=== PATIENT | female | born 1965 ===

== ENCOUNTER 2017-11-02 22:13 | Observation (INO) | payer BC ==
[2017-11-02 22:22] VITALS: TEMP 98.1
[2017-11-02] MEDS ORDERED: Nitroglycerin 2% Ointment Foilpak UD TOP STA (22:45)
[2017-11-02] MEDS ORDERED: Nitroglycerin 2% Ointment Foilpak UD TOP ONE (22:52)
[2017-11-02 23:06] LABS: BASO # 0.1 K/uL (0.0-0.2); BASO % 1.1 % (0.0-2.0); EOS # 0.4 K/uL (0.0-0.7); EOS % 5.5 % (0.0-4.0); HEMOGLOBIN 13.7 g/dL (12.0-16.0); LYMPH # 2.3 K/uL (1.0-4.3); LYMPH % 28.4 % (20.0-40.0); MEAN CELL VOLUME 89.9 fl (81.0-99.0); MEAN CORPUSCULAR HEMOGLOBIN 29.6 pg (27.0-31.0); MEAN CORPUSCULAR HGB CONC 32.9 g/dL (33.0-37.0); MEAN PLATELET VOLUME 7.6 fl (7.2-11.7); MONO # 0.5 K/uL (0.0-0.8); MONO % 6.7 % (0.0-10.0); NEUT # 4.7 K/uL (1.8-7.0); NEUT % 58.3 % (50.0-75.0); NRBC % 0.2 % (0.0-0.0); RBC 4.63 Mil/uL (3.80-5.20); RED CELL DISTRIBUTION WIDTH 12.7 % (11.5-14.5)
[2017-11-02 23:24] LABS: PARTIAL THROMBOPLASTIN TIME 30.7 Seconds (25.6-37.1); PROTHROMBIN TIME 10.8 Seconds (9.8-13.1)
[2017-11-02 23:25] LABS: ALB/GLOB RATIO 1.4 (1.0-2.1); ALBUMIN 4.2 g/dL (3.5-5.0); ALT/SGPT 32 U/L (9-52); AST/SGOT 18 U/L (14-36); BLOOD UREA NITROGEN 11 mg/dl (7-17); CALCIUM 8.9 mg/dL (8.4-10.2); GFR AFRICAN-AMERICAN > 60; GFR NON-AFRICAN AMERICAN > 60; MAGNESIUM 2.1 MG/DL (1.6-2.3)
--- NOTE | 2017-11-02 23:27 | ED PDOC ---
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 Patient states she was feeling a migraine headache come on, took sumatriptan and suddenly felt chest pain, which she says is similar to when she had elevated blood pressure but hasn't been on blood pressure medication for 6 months. Patient also had acute stress today - her car broke down earlier this evening. She denies shortness of breath. PMD: Dr. Espinoza Past Medical History Reviewed: Historical Data, Nursing Documentation, Vital Signs Vital Signs: Last Vital Signs Temp 98.1 F 11/02/17 22:16 Pulse 81 11/02/17 22:39 Resp 18 11/02/17 22:39 BP 169/108 H 11/02/17 22:39 Pulse Ox 100 11/02/17 23:36 - Medical History PMH: HTN, Hyperlipidemia, Migraine - Surgical History Other surgeries: uterine biopsy - Family History Family History: States: Hypertension Other Family History: high cholesterol - Social History Current smoker - smoking cessation education provided: No Alcohol: None Drugs: Denies - Allergies Allergies/Adverse Reactions: Allergies Allergy/AdvReac Type Severity Reaction Status Date / Time No Known Allergies Allergy Verified 11/02/17 22:16 Review of Systems ROS Statement: Except As Marked, All Systems Reviewed And Found Negative Cardiovascular: Positive for: Chest Pain. Negative for: Edema (legs) Respiratory: Negative for: Cough, Shortness of Breath Neurological: Positive for: Headache (resolved) Physical Exam - Reviewed Nursing Documentation Reviewed: Yes Vital Signs Reviewed: Yes - Physical Exam Appears: Positive for: Non-toxic, In Acute Distress Head Exam: Positive for: ATRAUMATIC, NORMOCEPHALIC Skin: Positive for: Warm, Dry Eye Exam: Positive for: EOMI, PERRL ENT: Positive for: Normal ENT Inspection, Pharynx Is (clear) Neck: Positive for: Painless ROM, Supple Cardiovascular/Chest: Positive for: Regular Rate, Rhythm, Chest Non Tender. Negative for: Murmur Respiratory: Positive for: Normal Breath Sounds. Negative for: Rales, Rhonchi, Wheezing, Respiratory Distress Gastrointestinal/Abdominal: Positive for: Soft. Negative for: Tenderness Back: Positive for: Normal Inspection. Negative for: Decreased ROM Extremity: Positive for: Normal ROM. Negative for: Deformity Lymphatic: Negative for: Adenopathy Neurologic/Psych: Positive for: Alert, Mood/Affect (mildly anxious affect). Negative for: Motor/Sensory Deficits - Laboratory Results Result Diagrams: 11/02/17 23:03 11/02/17 23:03 - ECG ECG: Positive for: Interpreted By Me ECG Rhythm: Positive for: Normal QRS, Normal ST Segment, Sinus Rhythm, 1st Degree Heart Block O2 Sat by Pulse Oximetry: 100 (RA) Pulse Ox Interpretation: Normal - Radiology X-Ray: Interpreted by Me X-Ray Interpretation: No Acute Disease Medical Decision Making Medical Decision Making: Time: 22:44 Initial Impression: Chest Pain Initial Plan: --EKG --CMP --Magnesium --Phosphorous --TSH --Troponin Stat --Troponin Q8H x 2 --Urine --Urine Dip --CBC --PTT --Prothrombin Time --Chest XR --Aspirin --Nitro-Bid --Pending ER workup pt needs to be hospitalized because of chest pain to rule out acute cardiac syndrome given risk factors Scribe Attestation: Documented by Noé Hoffman, acting as a scribe for Dr. Dione Gramajo MD Provider Scribe Attestation: All medical record entries made by the Scribe were at my direction and personally dictated by me. I have reviewed the chart and agree that the record accurately reflects my personal performance of the history, physical exam, medical decision making, and the department course for this patient. I have also personally directed, reviewed, and agree with the discharge instructions and disposition. Disposition - Clinical Impression Clinical Impression: Uncontrolled hypertension Discussed With : Paulina Metz Doctor Will See Patient In The: ED Counseled Patient/Family Regarding: Studies Performed, Diagnosis - Disposition Disposition Time: 23:00 Condition: FAIR Forms: [facility] ([place]) - Pt Status Changed To: Hospital Disposition Of: Observation - POA Present On Arrival: None
--- NOTE | 2017-11-03 00:12 | CP.PCM.HP ---
History of Present Illness - History of Present Illness History of Present Illness: CC: CP HPI: This is a 51 y/o female with HTN, HLD, and migraine [place] who was admitted with c/o CP. She states she had a migraine and took sumitriptan and suddenly felt CP, about an hour before she came to ED. She said it is similar to pain she feels when her BP is elevated; she notes that she is not on BP medications. She denies SOB, radiation, palpitations. Denies any other recent episodes of CP. Denies f/c/n/v/d. States she had some acute stress today because her car broke down earlier. PCP: Urszula MHx: HTN, HLD, migraine SHx: Uterine biopsy Allergies: NKDA Medications: As per med rec Social Hx: Lives with family, no tobacco, no EtOH Family Hx: HTN and HLD run in family Present on Admission - Present on Admission Any Indicators Present on Admission: No Past Patient History - Past Social History Alcohol: None Drugs: Denies - CARDIAC Hx Hypertension: Yes - NEUROLOGICAL Hx Migraine: Yes - PSYCHIATRIC Hx Substance Use: No - SURGICAL HISTORY Other/Comment: Uterine bx 08/2017 Meds Allergies/Adverse Reactions: Allergies Allergy/AdvReac Type Severity Reaction Status Date / Time No Known Allergies Allergy Verified 11/02/17 22:16 Physical Exam - Constitutional Appears: No Acute Distress - Head Exam Head Exam: ATRAUMATIC, NORMOCEPHALIC - Eye Exam Eye Exam: EOMI, PERRL - ENT Exam ENT Exam: Mucous Membranes Moist - Neck Exam Neck exam: Positive for: Full Rom - Respiratory Exam Respiratory Exam: Clear to Auscultation Bilateral, NORMAL BREATHING PATTERN - Cardiovascular Exam Cardiovascular Exam: REGULAR RHYTHM, +S1, +S2 - GI/Abdominal Exam GI & Abdominal Exam: Normal Bowel Sounds, Soft - Extremities Exam Extremities exam: Positive for: full ROM, normal inspection - Neurological Exam Neurological exam: Alert, CN II-XII Intact, Oriented x3 - Psychiatric Exam Psychiatric exam: Normal Affect, Normal Mood - Skin Skin Exam: Dry, Warm Results - Vital Signs Recent Vital Signs: Last Vital Signs Temp 98.1 F 11/02/17 22:16 Pulse 81 11/02/17 22:39 Resp 18 11/02/17 22:39 BP 169/108 H 11/02/17 22:39 Pulse Ox 100 11/03/17 00:06 - Labs Result Diagrams: 11/02/17 23:03 11/02/17 23:03 Labs: Laboratory Results - last 24 hr 11/02/17 11/02/17 11/02/17 23:03 23:03 23:03 WBC 8.0 RBC 4.63 Hgb 13.7 Hct 41.6 MCV 89.9 MCH 29.6 MCHC 32.9 L RDW 12.7 Plt Count 190 MPV 7.6 Neut % (Auto) 58.3 Lymph % (Auto) 28.4 [place] % (Auto) 6.7 Eos % (Auto) 5.5 H Baso % (Auto) 1.1 Neut # (Auto) 4.7 Lymph # (Auto) 2.3 [place] # (Auto) 0.5 Eos # (Auto) 0.4 Baso # (Auto) 0.1 PT 10.8 INR 1.0 APTT 30.7 Sodium 141 Potassium 3.7 Chloride 108 H Carbon Dioxide 22 Anion Gap 15 BUN 11 Creatinine 0.8 Est GFR ( Amer) > 60 Est GFR (Non-Af Amer) > 60 Random Glucose 97 Calcium 8.9 Phosphorus 2.4 L Magnesium 2.1 Total Bilirubin 0.4 AST 18 ALT 32 Alkaline Phosphatase 71 Troponin I < 0.0120 Total Protein 7.3 Albumin 4.2 Globulin 3.1 Albumin/Globulin Ratio 1.4 TSH 3rd Generation 5.50 H - EKG Data EKG Interpreted by: Myself EKG shows normal: Sinus rhythm Rate: Normal - EKG Data EKG comments: no acute changes - Imaging and Cardiology Chest x-ray Status: Image reviewed by me (No acute cardiac or pulm disease noted at this time) Assessment & Plan (1) Chest pain Assessment and Plan: 51 y/o female with CP, uncontrolled HTN, HLD and abnormal TSH. 1) CP/HTN/HLD -tele obs -serial trops -consider echo in AM -lipid panel in AM -ASA 325, SLNG PRN -Will start metoprolol given patient with known HTN and not taking any medications -Consider started lisinopril prior to d/c as well 2) TSH -- mildly elevated -Repeat in AM with free t4 3) DVT PPx -- SQ Lovenox Status: Acute (2) HLD (hyperlipidemia) Status: Acute (3) TSH elevation Status: Acute (4) DVT prophylaxis Status: Acute
[2017-11-03 06:00] VITALS: O2SAT 98
[2017-11-03 07:52] LABS: BLOOD UREA NITROGEN 9 mg/dl (7-17); CALCIUM 9.5 mg/dL (8.4-10.2); GFR AFRICAN-AMERICAN > 60; GFR NON-AFRICAN AMERICAN > 60; HDL CHOLESTEROL 57 MG/DL (30-70)
[2017-11-03 07:58] LABS: HEMOGLOBIN 13.2 g/dL (12.0-16.0); MEAN CORPUSCULAR HEMOGLOBIN 30.2 pg (27.0-31.0); MEAN CORPUSCULAR HGB CONC 34.3 g/dL (33.0-37.0); RBC 4.37 Mil/uL (3.80-5.20); WHITE BLOOD COUNT 7.7 K/uL (4.8-10.8)
[2017-11-03 08:05] LABS: LDL CHOLESTEROL 180 mg/dL (0-129)
[2017-11-03 08:09] LABS: T4 7.38 ug/dl (5.5-11.0)
[2017-11-03] MEDS ORDERED: Enoxaparin 40 mg Syringe SC SCH (09:00)
[2017-11-03 10:01] VITALS: BP 116/78; PULSE 75; RESP 24
--- NOTE | 2017-11-03 10:13 | RAD ---
HISTORY: chest pain COMPARISON: No prior. FINDINGS: LUNGS: Minor bibasilar atelectasis PLEURA: No significant pleural effusion identified, no pneumothorax apparent. CARDIOVASCULAR: Normal. OSSEOUS STRUCTURES: No significant abnormalities. VISUALIZED UPPER ABDOMEN: Normal. OTHER FINDINGS: None. IMPRESSION: Minor bibasilar atelectasis.
--- NOTE | 2017-11-03 11:16 | CARD ---
APPROVED REPORT EKG Measurement Heart [id number] <Conclusion> Sinus rhythm with 1st degree AV block Otherwise normal ECG
--- NOTE | 2017-11-03 11:17 | CARD ---
APPROVED REPORT EKG Measurement Heart [id number] <Conclusion> Normal sinus rhythm Nonspecific ST abnormality Abnormal ECG
--- NOTE | 2017-11-03 13:45 | CP.PCM.DIS ---
<Jacob Rodriguez - Last Filed: 11/03/17 16:19> Provider - Provider Date of Admission: 11/02/17 23:58 Attending physician: Paulina Metz MD Primary care physician: Dr Seaman. Time Spent in preparation of Discharge (in minutes): 30 Diagnosis - Discharge Diagnosis (1) Chest pain Status: Acute Comment: Resolved. Pt will go for further evalaution with service center appraiser Dr. Aj Christensen. (2) Hyperlipidemia, acquired Status: Chronic Comment: Will continue Lipitor and ASA. Pt will be evaluated by service center appraiser Dr Aj Christensen. Pt instructed to folow a low-fat healthy diet. Hospital Course - Lab Results Lab Results: Most Recent Lab Values WBC 7.7 K/uL (4.8-10.8) 11/03/17 06:00 RBC 4.37 Mil/uL (3.80-5.20) 11/03/17 06:00 Hgb 13.2 g/dL (12.0-16.0) 11/03/17 06:00 Hct 38.5 % (34.0-47.0) 11/03/17 06:00 MCV 88.0 fl (81.0-99.0) 11/03/17 06:00 MCH 30.2 pg (27.0-31.0) 11/03/17 06:00 MCHC 34.3 g/dL (33.0-37.0) 11/03/17 06:00 RDW 13.0 % (11.5-14.5) 11/03/17 06:00 Plt Count 222 K/uL (130-400) 11/03/17 06:00 MPV 7.6 fl (7.2-11.7) 11/02/17 23:03 Neut % (Auto) 58.3 % (50.0-75.0) 11/02/17 23:03 Lymph % (Auto) 28.4 % (20.0-40.0) 11/02/17 23:03 [place] % (Auto) 6.7 % (0.0-10.0) 11/02/17 23:03 Eos % (Auto) 5.5 % (0.0-4.0) H 11/02/17 23:03 Baso % (Auto) 1.1 % (0.0-2.0) 11/02/17 23:03 Neut # (Auto) 4.7 K/uL (1.8-7.0) 11/02/17 23:03 Lymph # (Auto) 2.3 K/uL (1.0-4.3) 11/02/17 23:03 [place] # (Auto) 0.5 K/uL (0.0-0.8) 11/02/17 23:03 Eos # (Auto) 0.4 K/uL (0.0-0.7) 11/02/17 23:03 Baso # (Auto) 0.1 K/uL (0.0-0.2) 11/02/17 23:03 PT 10.8 Seconds (9.8-13.1) 11/02/17 23: INR 1.0 (0.9-1.2) 11/02/17 23:03 APTT 30.7 Seconds (25.6-37.1) 11/02/17 23:03 Sodium 140 mmol/l (132-148) 11/03/17 06:00 Potassium 3.6 MMOL/L (3.6-5.0) 11/03/17 06:00 Chloride 107 mmol/L (98-107) 11/03/17 06:00 Carbon Dioxide 24 mmol/L (22-30) 11/03/17 06:00 Anion Gap 13 (10-20) 11/03/17 06:00 BUN 9 mg/dl (7-17) 11/03/17 06:00 Creatinine 0.8 mg/dl (0.7-1.2) 11/03/17 06:00 Est GFR ( Amer) > 60 11/03/17 06:00 Est GFR (Non-Af Amer) > 60 11/03/17 06:00 Random Glucose 124 mg/dL (65-105) H 11/03/17 06:00 Calcium 9.5 mg/dL (8.4-10.2) 11/03/17 06:00 Phosphorus 2.4 mg/dl (2.5-4.5) L 11/02/17 23:03 Magnesium 2.1 MG/DL (1.6-2.3) 11/02/17 23:03 Total Bilirubin 0.4 mg/dl (0.2-1.3) 11/02/17 23:03 AST 18 U/L (14-36) 11/02/17 23:03 ALT 32 U/L (9-52) 11/02/17 23:03 Alkaline Phosphatase 71 U/L (38-126) 11/02/17 23:03 Troponin I < 0.0120 ng/mL (0.00-0.120) 11/03/17 06:00 Total Protein 7.3 G/DL (6.3-8.2) 11/02/17 23: Albumin 4.2 g/dL (3.5-5.0) 11/02/17 23: Globulin 3.1 gm/dL (2.2-3.9) 11/02/17 23: Albumin/Globulin Ratio 1.4 (1.0-2.1) 11/02/17 23:03 Triglycerides 229 mg/DL (0-149) H 11/03/17 06:00 Cholesterol 276 mg/dL (0-199) H 11/03/17 06:00 LDL Cholesterol Direct 180 mg/dL (0-129) H 11/03/17 06:00 HDL Cholesterol 57 MG/DL (30-70) 11/03/17 06:00 Thyroxine (T4) 7.38 ug/dl (5.5-11.0) 11/03/17 06:00 TSH 3rd Generation 5.99 mIU/ML (0.46-4.68) H 11/03/17 06:00 - Hospital Course Hospital Course: 51 y/o F with a PMHx of HTN, HLD and migraine was under observation after an episode of severe chest pain s/p Sumatriptan intake. EKG and repeated EKG did not show remarkable findings. Troponin negative x2, 8 hours in between. Blood analysis remarkable for Triglycerides 229, CHOL 276, LDL 180, coags WNL and mildly elevated TSH. Pt remained stable, and afebrile. Pt was discharged with specific instructions to follow up with service center appraiser and PMD for further evaluation. Pt to continue ASA and Lipitor therapy. --BP was re-measured 123/76-WNL. - Date & Time of H&P Date of H&P: 11/03/17 Time of H&P: 00:08 Discharge Exam - Head Exam Head Exam: ATRAUMATIC, NORMOCEPHALIC - Eye Exam Eye Exam: EOMI, Normal appearance, PERRL - ENT Exam ENT Exam: Mucous Membranes Dry, Mucous Membranes Moist - Respiratory Exam Respiratory Exam: Clear to PA & Lateral, NORMAL BREATHING PATTERN - Cardiovascular Exam Cardiovascular Exam: REGULAR RHYTHM, +S1, +S2 - GI/Abdominal Exam GI & Abdominal Exam: Normal Bowel Sounds, Soft. absent: Tenderness - Extremities Exam Extremities exam: full ROM - Neurological Exam Neurological exam: Alert, Normal Gait, Oriented x3 - Psychiatric Exam Psychiatric exam: Normal Mood Discharge Plan - Discharge Medications Prescriptions: Aspirin 81 mg PO DAILY #1 tab.chew Atorvastatin [Lipitor] 10 mg PO DIN #1 tab - Follow Up Plan Condition: FAIR Disposition: HOME/ ROUTINE Instructions: Chest Pain (ED) Additional Instructions: ff up with Dr Alexis jones appt with DR Maria Del Carmen Christensen further cardiac work up, control of BP and Lipids Referrals: Dennis Espinoza MD [Medical Doctor] - Marito Christensen MD [Staff Provider] - <Giovanna Kaufman - Last Filed: 11/03/17 16:33> Provider - Provider Date of Admission: 11/02/17 23:58 Attending physician: Paulina Metz MD Hospital Course - Lab Results Lab Results: Most Recent Lab Values WBC 7.7 K/uL (4.8-10.8) 11/03/17 06:00 RBC 4.37 Mil/uL (3.80-5.20) 11/03/17 06:00 Hgb 13.2 g/dL (12.0-16.0) 11/03/17 06:00 Hct 38.5 % (34.0-47.0) 11/03/17 06:00 MCV 88.0 fl (81.0-99.0) 11/03/17 06:00 MCH 30.2 pg (27.0-31.0) 11/03/17 06:00 MCHC 34.3 g/dL (33.0-37.0) 11/03/17 06:00 RDW 13.0 % (11.5-14.5) 11/03/17 06:00 Plt Count 222 K/uL (130-400) 11/03/17 06:00 MPV 7.6 fl (7.2-11.7) 11/02/17 23:03 Neut % (Auto) 58.3 % (50.0-75.0) 11/02/17 23:03 Lymph % (Auto) 28.4 % (20.0-40.0) 11/02/17 23:03 [place] % (Auto) 6.7 % (0.0-10.0) 11/02/17 23:03 Eos % (Auto) 5.5 % (0.0-4.0) H 11/02/17 23:03 Baso % (Auto) 1.1 % (0.0-2.0) 11/02/17 23:03 Neut # (Auto) 4.7 K/uL (1.8-7.0) 11/02/17 23:03 Lymph # (Auto) 2.3 K/uL (1.0-4.3) 11/02/17 23:03 [place] # (Auto) 0.5 K/uL (0.0-0.8) 11/02/17 23: Eos # (Auto) 0.4 K/uL (0.0-0.7) 11/02/17 23:03 Baso # (Auto) 0.1 K/uL (0.0-0.2) 11/02/17 23: PT 10.8 Seconds (9.8-13.1) 11/02/17 23: INR 1.0 (0.9-1.2) 11/02/17 23: APTT 30.7 Seconds (25.6-37.1) 11/02/17 23:03 Sodium 140 mmol/l (132-148) 11/03/17 06:00 Potassium 3.6 MMOL/L (3.6-5.0) 11/03/17 06:00 Chloride 107 mmol/L (98-107) 11/03/17 06:00 Carbon Dioxide 24 mmol/L (22-30) 11/03/17 06:00 Anion Gap 13 (10-20) 11/03/17 06:00 BUN 9 mg/dl (7-17) 11/03/17 06:00 Creatinine 0.8 mg/dl (0.7-1.2) 11/03/17 06:00 Est GFR ( Amer) > 60 11/03/17 06:00 Est GFR (Non-Af Amer) > 60 11/03/17 06:00 Random Glucose 124 mg/dL (65-105) H 11/03/17 06:00 Calcium 9.5 mg/dL (8.4-10.2) 11/03/17 06:00 Phosphorus 2.4 mg/dl (2.5-4.5) L 11/02/17 23:03 Magnesium 2.1 MG/DL (1.6-2.3) 11/02/17 23:03 Total Bilirubin 0.4 mg/dl (0.2-1.3) 11/02/17 23:03 AST 18 U/L (14-36) 11/02/17 23:03 ALT 32 U/L (9-52) 11/02/17 23:03 Alkaline Phosphatase 71 U/L (38-126) 11/02/17 23: Troponin I < 0.0120 ng/mL (0.00-0.120) 11/03/17 06:00 Total Protein 7.3 G/DL (6.3-8.2) 11/02/17 23:03 Albumin 4.2 g/dL (3.5-5.0) 11/02/17 23: Globulin 3.1 gm/dL (2.2-3.9) 11/02/17 23:03 Albumin/Globulin Ratio 1.4 (1.0-2.1) 11/02/17 23:03 Triglycerides 229 mg/DL (0-149) H 11/03/17 06:00 Cholesterol 276 mg/dL (0-199) H 11/03/17 06:00 LDL Cholesterol Direct 180 mg/dL (0-129) H 11/03/17 06:00 HDL Cholesterol 57 MG/DL (30-70) 11/03/17 06:00 Thyroxine (T4) 7.38 ug/dl (5.5-11.0) 11/03/17 06:00 TSH 3rd Generation 5.99 mIU/ML (0.46-4.68) H 11/03/17 06:00 Attending/Attestation - Attestation I have personally seen and examined this patient.: Yes I have fully participated in the care of the patient.: Yes I have reviewed all pertinent clinical information, including history, physical exam and plan: Yes Notes (Text): Chest Pain unclear etiology , need further work up - may be musculoskeletal pain - Troponin negative - repeated EKG - noted sl ST concave elevation - showed EKG to Dr Christensen - for hime its a normal EKG since elevation is concave and not convex - Pt will ff up with Dr Maria Del Carmen Christensen karen Monday Hyperlipidemia - cont LIpitor - rec to increase dose to 20mg HS
== END 2017-11-03 11:17 | disposition home or self-care (01) ==
LOC: H.ER 22:13 → H.ERHOLD 23:58
PROVIDERS: ADMIT Internal Medicine; ATTEND Internal Medicine
DX: R07.89 Other chest pain (principal); E78.5 Hyperlipidemia, unspecified; I10 Essential (primary) hypertension; G43.909 Migraine, unspecified, not intractable, without status migrainosus; Z82.49 Family history of ischemic heart disease and other diseases of the circulatory system
CPT/HCPCS: 71045; 80048; 80053; 80061; 81025; 83735; 84100; 84436; 84443; 84484; 85025; 85027; 85610; 85730; 93005; 96372; 99285; G0378; J1650